=== PATIENT | male | born 1950 | race Caucasian/White ===

== ENCOUNTER 2016-09-06 10:18 | Inpatient (IN) | payer OTHER ==
[~2016-09-06] VITALS: Ht 172.7 cm; Wt 103.0 kg
[2016-09-06 11:19] LABS: ADD MIUA? YES; BILIRUBIN NEGATIVE; BLOOD MODERATE; COLOR DK YELLOW ((YELLOW)); GLUCOSE (STRIP) NEGATIVE; KETONES TRACE; LEUKOCYTES LARGE; NITRITE POSITIVE; PROTEIN (STRIP) TRACE; SPECIFIC GRAVITY 1.016 (1.000-1.030); UROBILINOGEN 0.2 MG/DL (0.2-1.0)
[2016-09-06 11:54] LABS: BACTERIA 2+; CASTS NONE SEEN /LPF; CRYSTALS NONE SEEN; EPITHELIAL CELLS NONE SEEN; MUCUS NONE SEEN; RED BLOOD CELLS NONE SEEN /HPF (0-5); UCUL ADDED? YES; WHITE BLOOD CELLS TNTC /HPF (0-5)
[2016-09-06 12:03] LABS: HEMATOCRIT 40.8 % (38.0-50.0); MCH 27.1 PG (29.0-34.0); MCHC 35.8 G/DL (30.0-36.0); MCV 75.7 FL (86-99); MEAN PLAT.VOLUME 10.3 uM^3 (9.0-12.4); PLATELET COUNT 243 K/uL (156-360); RBC DIS.WIDTH-CV 14.8 % (11.8-14.6); RBC DIS.WIDTH-SD 40.3 % (39-53); RED BLOOD COUNT 5.39 M/uL (4.00-5.50); WHITE BLOOD COUNT 22.3 K/uL (4.1-10.2)
[2016-09-06 12:16] LABS: CHLORIDE 103 mEq/L (99-109); POTASSIUM 4.4 mEq/L (3.7-5.4); SODIUM 135 mEq/L (136-147)
[2016-09-06 12:18] LABS: GLUCOSE 125 mg/dL (70-99)
[2016-09-06 12:20] LABS: ANION GAP 12 MEQ/L (2-14); TOTAL BILIRUBIN 1.2 mg/dL (0.0-1.0)
[2016-09-06 12:22] LABS: ALKALINE PHOSPHATASE 77 IU/L (3-129); GFR ESTIMATE (CALCULATED) > 59 mL/min/
[2016-09-06 12:23] LABS: UREA NITROGEN (BUN) 14 mg/dL (9-23)
[2016-09-06] MEDS ORDERED: PROAIR HFA8.5 GM IH (14:20)
[2016-09-06] MEDS ORDERED: SYMBICORT60 INHALAT IH (14:20)
[2016-09-06] MEDS ORDERED: ASPIR-LOW81 MG PO (14:21)
[2016-09-06] MEDS ORDERED: VITAMIN D31000 UNI2 PO (14:21)
[2016-09-06] MEDS ORDERED: CENTRUM SILVER1 EAC3 PO (14:21)
[2016-09-06] MEDS ORDERED: CYANOCOBALAM1000 MCG PO (14:22)
[2016-09-06] MEDS ORDERED: FISH OIL 1,2001 EAC4 PO (14:22)
[2016-09-06 17:45] VITALS: BP 153/73
[2016-09-06 21:10] VITALS: BP 120/65
[2016-09-06 22:50] VITALS: BP 141/67
[2016-09-07 08:03] VITALS: BP 112/55
[2016-09-07 16:55] VITALS: BP 112/64
[2016-09-07 22:42] VITALS: BP 139/67
[2016-09-08 06:59] LABS: EOSINOPHIL (%) 5.3 % (0-5); EOSINOPHIL COUNT 0.4 K/uL (0-0.3); HEMATOCRIT 39.8 % (38.0-50.0); IMMATURE GRANULOCYTE (%) 0.4 % (0.0-0.7); LYMPHOCYTE COUNT 1.8 K/uL (1.0-2.8); MCH 26.8 PG (29.0-34.0); MCHC 34.4 G/DL (30.0-36.0); MCV 77.7 FL (86-99); MONOCYTE COUNT 1.2 K/uL (0-0.8); NEUTROPHIL (%) 56.2 % (45-76); NEUTROPHIL COUNT 4.5 K/uL (1.8-6.4); PLATELET COUNT 211 K/uL (156-360); RBC DIS.WIDTH-CV 14.3 % (11.8-14.6); RBC DIS.WIDTH-SD 40.7 % (39-53); RED BLOOD COUNT 5.12 M/uL (4.00-5.50)
[2016-09-08 07:00] LABS: WHITE BLOOD COUNT 8.1 K/uL (4.1-10.2)
[2016-09-08 07:11] LABS: ANION GAP 8 MEQ/L (2-14); CHLORIDE 102 MEQ/L (99-109); GFR ESTIMATE (CALCULATED) > 59 mL/min/; GLUCOSE 110 mg/dL (70-99); SAMPLE HEMOLYSIS CHECK 0; SAMPLE ICTERIC CHECK 0; SAMPLE LIPEMIA CHECK 0; SODIUM 136 MEQ/L (136-147); UREA NITROGEN (BUN) 11 mg/dL (9-23)
[2016-09-08 08:00] VITALS: BP 106/58
[2016-09-08 16:00] VITALS: BP 121/70
[2016-09-08 22:54] VITALS: BP 124/68
[2016-09-09] MEDS ORDERED: CEFTIN500 MG PO (08:45)
== END 2016-09-09 13:13 | disposition home health service (06) | DRG 690 ==
LOC: EME 10:18 → EDOF 16:19 → 5EAST 16:19
PROVIDERS: Internal Medicine; Nurse Practitioner Family
DX: N10 Acute pyelonephritis (principal); R33.9 Retention of urine, unspecified; J44.9 Chronic obstructive pulmonary disease, unspecified; N40.1 Benign prostatic hyperplasia with lower urinary tract symptoms; E53.8 Deficiency of other specified B group vitamins; E55.9 Vitamin D deficiency, unspecified; F17.210 Nicotine dependence, cigarettes, uncomplicated; B96.20 Unspecified Escherichia coli [E. coli] as the cause of diseases classified elsewhere
CPT/HCPCS: 76770; 80048; 80053; 81003; 83605; 85025; 85027; 87040; 87077; 87086; 87186; 94640 76; 94760; 99202; 99281; 99285; J0696; J3260; J7030; J7050

== ENCOUNTER 2017-01-22 06:03 | Emergency (ER) | payer OTHER ==
[~2017-01-22] VITALS: Ht 172.7 cm; Wt 99.0 kg
[~2017-01-22 06:03] MED LIST: ASPIR-LOW81 MG PO; CEFTIN500 MG PO; CENTRUM SILVER1 EAC3 PO; CYANOCOBALAM1000 MCG PO; FISH OIL 1,2001 EAC4 PO; PROAIR HFA8.5 GM IH; SYMBICORT60 INHALAT IH; VITAMIN D31000 UNI2 PO
[2017-01-22] MEDS ORDERED: ZITHROMAX Z-PA250 MG PO (08:49)
[2017-01-22] MEDS ORDERED: ADVAIR 500/501 DISK IH (08:49)
[2017-01-22] MEDS ORDERED: PREDNISONE50 MG PO (08:49)
[2017-01-22 09:09] VITALS: BP 131/76
== END 2017-01-22 09:11 | disposition home or self-care (01) ==
LOC: EME 06:03
DX: J44.1 Chronic obstructive pulmonary disease with (acute) exacerbation (principal); J20.9 Acute bronchitis, unspecified; F17.200 Nicotine dependence, unspecified, uncomplicated; Z79.82 Long term (current) use of aspirin
CPT/HCPCS: 71020; 94640; 99281; 99285; J7512